=== PATIENT | female | born 1975 | race Caucasian/White ===

== ENCOUNTER 2018-12-23 07:57 | Outpatient (CLI) | payer OTHER | END 2018-12-23 07:59 | disposition home or self-care (01) | LOC: LAB 07:57 | DX: E83.51 Hypocalcemia (principal); D50.9 Iron deficiency anemia, unspecified; N83.209 Unspecified ovarian cyst, unspecified side; E78.00 Pure hypercholesterolemia, unspecified; E03.8 Other specified hypothyroidism; N39.0 Urinary tract infection, site not specified; D68.8 Other specified coagulation defects ==

== ENCOUNTER → 2018-12-23 | Outpatient (CLI) | payer OTHER | END | disposition home or self-care (01) | LOC: MAMO-SONO 09:15 | DX: N80.8 Other endometriosis (principal); R10.2 Pelvic and perineal pain; D25.9 Leiomyoma of uterus, unspecified; Z12.31 Encounter for screening mammogram for malignant neoplasm of breast; N63.10 Unspecified lump in the right breast, unspecified quadrant; N63.20 Unspecified lump in the left breast, unspecified quadrant ==

== ENCOUNTER 2019-01-14 08:00 | Outpatient (CLI) | payer OTHER | END 2019-01-14 08:07 | disposition home or self-care (01) | LOC: MRI 08:00 | DX: N83.209 Unspecified ovarian cyst, unspecified side (principal); N80.8 Other endometriosis | CPT/HCPCS: 72196; 74182 ==

== ENCOUNTER → 2019-01-25 06:22 | Outpatient (CLI) | payer OTHER | END | disposition home or self-care (01) | LOC: LAB 06:22 | DX: E03.8 Other specified hypothyroidism (principal); Z80.3 Family history of malignant neoplasm of breast; D50.0 Iron deficiency anemia secondary to blood loss (chronic); N93.8 Other specified abnormal uterine and vaginal bleeding; D25.9 Leiomyoma of uterus, unspecified; D50.8 Other iron deficiency anemias; D51.0 Vitamin B12 deficiency anemia due to intrinsic factor deficiency; D51.8 Other vitamin B12 deficiency anemias; E06.3 Autoimmune thyroiditis ==

== ENCOUNTER 2019-01-25 07:41 | Outpatient (CLI) | payer OTHER | END 2019-01-25 07:45 | disposition home or self-care (01) | LOC: SONOGRAMA 07:41 | DX: D50.0 Iron deficiency anemia secondary to blood loss (chronic) (principal); N93.8 Other specified abnormal uterine and vaginal bleeding; D25.9 Leiomyoma of uterus, unspecified; Z80.3 Family history of malignant neoplasm of breast ==

== ENCOUNTER 2019-03-08 07:15 | Outpatient (CLI) | payer OTHER | END 2019-03-08 07:20 | disposition home or self-care (01) | LOC: SONOGRAMA 07:15 | DX: E04.1 Nontoxic single thyroid nodule (principal) ==

== ENCOUNTER 2019-06-13 08:00 | Outpatient (CLI) | payer OTHER ==
[2019-06-13] MEDS ORDERED: FUSION PLUS CA1 EACH PO (16:33)
== END 2019-06-13 15:00 | disposition home or self-care (01) ==
LOC: LAB
DX: D50.8 Other iron deficiency anemias (principal); E83.51 Hypocalcemia; E78.00 Pure hypercholesterolemia, unspecified; D68.8 Other specified coagulation defects; N39.0 Urinary tract infection, site not specified; N83.209 Unspecified ovarian cyst, unspecified side; Z01.810 Encounter for preprocedural cardiovascular examination; Z01.811 Encounter for preprocedural respiratory examination

== ENCOUNTER 2019-06-13 15:22 | Inpatient (IN) | payer OTHER ==
[~2019-06-13] VITALS: Ht 152.4 cm; Wt 73.9 kg
[2019-06-13] MEDS ORDERED: FUSION PLUS CA1 EACH PO (16:33)
== END 2019-06-20 16:32 | disposition home or self-care (01) | DRG 742 ==
LOC: O/R 06-17 06:44 → OB/GYN 06-17 06:44 → CIR.AMB 06-17 14:39 → OB/GYN 06-17 14:40 → EDSTATUS 06-17 14:40 → OB/GYN 06-17 15:22
PROVIDERS: ADMIT Specialist
PROC: 0UT70ZZ Resection of Bilateral Fallopian Tubes, Open Approach (ICD-10-PCS; 2019-06-17)
PROC: 0UT20ZZ Resection of Bilateral Ovaries, Open Approach (ICD-10-PCS; 2019-06-17)
PROC: 0DQ80ZZ Repair Small Intestine, Open Approach (ICD-10-PCS; 2019-06-17)
PROC: 0UT90ZZ Resection of Uterus, Open Approach (ICD-10-PCS; principal; 2019-06-17 07:00)
DX: D25.1 Intramural leiomyoma of uterus (principal); K91.72 Accidental puncture and laceration of a digestive system organ or structure during other procedure; N72 Inflammatory disease of cervix uteri; N80.0 Endometriosis of uterus; N80.1 Endometriosis of ovary; N83.11 Corpus luteum cyst of right ovary; N83.01 Follicular cyst of right ovary; N73.6 Female pelvic peritoneal adhesions (postinfective)

== ENCOUNTER 2020-05-02 12:05 | Emergency (ER) | payer OTHER ==
[~2020-05-02] VITALS: Ht 152.4 cm; Wt 72.6 kg
[~2020-05-02 12:05] MED LIST: FUSION PLUS CA1 EACH PO
[2020-05-02] MEDS ORDERED: ECOTRIN325 M1 (12:18)
[2020-05-02] MEDS ORDERED: NORFLEX100MG PO (15:44)
[2020-05-02] MEDS ORDERED: KETO10TA2 PO (15:44)
== END 2020-05-02 15:56 | disposition home or self-care (01) ==
LOC: ER 12:05
DX: R07.89 Other chest pain (principal)

== ENCOUNTER 2020-10-03 09:58 | Outpatient (CLI) | payer OTHER ==
[~2020-10-03 09:58] MED LIST changes: +ECOTRIN325 M1; +KETO10TA2 PO; +NORFLEX100MG PO
== END 2020-10-03 10:01 | disposition home or self-care (01) ==
LOC: MAMO-SONO 09:58
PROVIDERS: ATTEND Specialist
DX: Z12.31 Encounter for screening mammogram for malignant neoplasm of breast (principal); N60.01 Solitary cyst of right breast

== ENCOUNTER 2020-10-09 13:14 | Outpatient (CLI) | payer OTHER | END 2020-10-09 13:26 | disposition home or self-care (01) | LOC: SONOGRAMA 13:14 | PROVIDERS: ATTEND Internal Medicine | DX: E04.1 Nontoxic single thyroid nodule (principal); E03.8 Other specified hypothyroidism; E78.89 Other lipoprotein metabolism disorders; I10 Essential (primary) hypertension; M54.5 Low back pain; Z01.810 Encounter for preprocedural cardiovascular examination; E55.9 Vitamin D deficiency, unspecified; E66.8 Other obesity; G62.89 Other specified polyneuropathies ==

== ENCOUNTER 2021-12-19 11:28 | Outpatient (CLI) | payer OTHER | END 2021-12-20 15:07 | disposition home or self-care (01) | LOC: RAD 11:28 | PROVIDERS: ATTEND Orthopaedic Surgery | DX: M25.561 Pain in right knee (principal); M25.562 Pain in left knee; S83.200A Bucket-handle tear of unspecified meniscus, current injury, right knee, initial encounter | CPT/HCPCS: 73721 ==

== ENCOUNTER 2022-07-23 08:52 | Outpatient (CLI) | payer OTHER | END 2022-07-23 08:59 | disposition home or self-care (01) | LOC: MAMO-SONO 08:52 | PROVIDERS: ATTEND Internal Medicine | DX: Z12.31 Encounter for screening mammogram for malignant neoplasm of breast (principal); I10 Essential (primary) hypertension; E03.9 Hypothyroidism, unspecified; E78.9 Disorder of lipoprotein metabolism, unspecified; E55.9 Vitamin D deficiency, unspecified; E66.8 Other obesity; G62.9 Polyneuropathy, unspecified ==

== ENCOUNTER 2022-09-23 11:06 | Outpatient (CLI) | payer OTHER | END 2022-09-23 11:12 | disposition home or self-care (01) | LOC: MRI 11:06 | PROVIDERS: ATTEND Orthopaedic Surgery | DX: S83.200A Bucket-handle tear of unspecified meniscus, current injury, right knee, initial encounter (principal) | CPT/HCPCS: 73721 ==

== ENCOUNTER 2022-10-07 09:12 | Outpatient (CLI) | payer OTHER | END 2022-10-07 09:21 | disposition home or self-care (01) | LOC: SONOGRAMA 09:12 | PROVIDERS: ATTEND Specialist | DX: Z12.31 Encounter for screening mammogram for malignant neoplasm of breast (principal); N63.0 Unspecified lump in unspecified breast ==